=== PATIENT | female | born 1985 | race African-American/Black ===

== ENCOUNTER 2017-04-05 08:40 | Emergency (ER) | payer OTHER ==
[~2017-04-05 08:40] MED LIST: PRENCAP10 PO
[2017-04-05 08:41] VITALS: PULSE 108; RESP 26; O2SAT 94
--- NOTE | 2017-04-05 09:01 | PD ---
HPI Chief Complaint: Respiratory Distress Time Seen by Provider: 08:55 Travel History International Travel<30 days: No Contact w/Intl Traveler<30days: No Traveled to known affect area: No History of Present Illness HPI 32-year-old female history of asthma and bronchitis, presents today with complaints of cough and shortness of breath and wheezing. The patient states it started yesterday. She states she used her son's nebulizer last night however this morning the wheezing and shortness of breath was still bad. She denies any fevers, chills. She denies any chest pain, chest pressure. She does report production in her cough with yellow green tinged sputum. The patient is currently undergoing her menstrual cycle right now. There no other complaints time my examination. Patient reports she stopped smoking 2 weeks ago. The patient has no previous history of pulmonary emboli. She is currently not smoking. She does not have any calf tenderness or swelling. There is no pleuritic chest pain. There are no recent long car or plane rides. There is currently no estrogen use. PFSH Past Medical History Diminished Hearing: No Hypertension: Yes ?: Not : 2 Para: 1 Past Surgical History Section: Yes Gynecologic Surgery: Yes (1 ) Social History Alcohol Use: No Tobacco Use: No Substance Use: No (HX OF MARIJUANA USE) Allergies-Medications (Allergen,Severity, Reaction): Coded Allergies: No Known Allergies (Unverified , 04/08/15) Reported Meds & Prescriptions Reported Meds & Active Scripts Active Reported Multi +Dha (Ferrous Fumarate/Vit C/Folic Acid) + Cap 1 Cap PO DAILY Review of Systems Except as stated in HPI: all other systems reviewed are Neg General / Constitutional: No: Fever, Chills HENT: No: Headaches, Neck Pain Cardiovascular: No: Chest Pain or Discomfort, Palpitations Respiratory: Positive: Cough (green yellow sputum), Shortness of Breath, Wheezing Gastrointestinal: No: Nausea, Vomiting, Abdominal Pain Genitourinary: No: Frequency, Dysuria Musculoskeletal: No: Weakness, Pain Neurologic: No: Weakness, Dizziness, Headache Physical Exam Narrative GENERAL: Well-nourished, well-developed patient, in moderate respiratory discomfort. SKIN: Focused skin assessment warm/dry. HEAD: Normocephalic/atraumatic. EYES: No scleral icterus. No injection or drainage. NECK: Supple, trachea midline. CARDIOVASCULAR: Regular rate and rhythm without murmurs, gallops, or rubs. RESPIRATORY: Decreased breath sounds bilaterally. No Rales or wheezing. GASTROINTESTINAL: Abdomen soft, non-tender, nondistended. MUSCULOSKELETAL: No cyanosis, or edema. NEUROLOGICAL: Awake and alert. Cranial nerves II through XII intact. Motor grossly within normal limits. Five out of 5 muscle strength in all muscle groups. Normal speech. Data Data Last Documented VS Vital Signs Date Time Temp Pulse Resp B/P (MAP) Pulse Ox O2 Delivery O2 Flow Rate FiO2 04/05/17 09:05 100 Aerosol Mask 04/05/17 08:41 108 26 Orders Orders Complete Blood Count With Diff (04/05/17 09:01) Basic Metabolic Panel (Bmp) (04/05/17 09:01) Iv Access Insert/Monitor (04/05/17 09:01) Ecg Monitoring (04/05/17 09:01) Oximetry (04/05/17 09:01) Oxygen Administration (04/05/17 09:01) Chest, Single Ap (04/05/17 09:01) Sodium Chloride 0.9% Flush (Ns Flush) (04/05/17 09:15) Methylprednisolone So Succ Inj (Solumedr (04/05/17 09:15) Albuterol-Ipratropium Neb (Duoneb Neb) (04/05/17 09:15) Albuterol Neb (Albuterol Neb) (04/05/17 09:15) Labs Laboratory Tests Test 04/05/17 09:00 White Blood Count 8.5 TH/MM3 Red Blood Count 4.66 MIL/MM3 Hemoglobin 14.4 GM/DL Hematocrit 42.8 % Mean Corpuscular Volume 91.8 FL Mean Corpuscular Hemoglobin 30.8 PG Mean Corpuscular Hemoglobin Concent 33.5 % Red Cell Distribution Width 13.9 % Platelet Count 316 TH/MM3 Mean Platelet Volume 8.0 FL Neutrophils (%) (Auto) 67.5 % Lymphocytes (%) (Auto) 16.1 % Monocytes (%) (Auto) 10.2 % Eosinophils (%) (Auto) 5.7 % Basophils (%) (Auto) 0.5 % Neutrophils # (Auto) 5.8 TH/MM3 Lymphocytes # (Auto) 1.4 TH/MM3 Monocytes # (Auto) 0.9 TH/MM3 Eosinophils # (Auto) 0.5 TH/MM3 Basophils # (Auto) 0.0 TH/MM3 CBC Comment DIFF FINAL Differential Comment Blood Urea Nitrogen 6 MG/DL Creatinine 0.81 MG/DL Random Glucose 98 MG/DL Calcium Level 9.0 MG/DL Sodium Level 137 MEQ/L Potassium Level 3.6 MEQ/L Chloride Level 105 MEQ/L Carbon Dioxide Level 25.0 MEQ/L Anion Gap 7 MEQ/L Estimat Glomerular Filtration Rate 100 ML/MIN [facility] Medical Decision Making Medical Screen Exam Complete: Yes Emergency Medical Condition: Yes Differential Diagnosis Rhonchi this versus pneumonia versus pulmonary embolus Narrative Course 32-year-old female with history of bronchitis, presents today with complaints of cough and shortness of breath. The patient denies a fevers, chills. Patient has wheezing diffusely bilaterally and decreased respiratory breath sounds at the bases. She's been given 125 mg of Solu-Medrol. She's also been given 3 nebulizer treatments first with Atrovent. She'll be discharged with a prescription for azithromycin Z-Malick, pro-air inhaler, prednisone 40 mg daily 6 days. She'll be instructed to follow up with her primary care physician. Diagnosis Primary Impression: Acute bronchitis Additional Instructions: Return if feeling worse. Med/Other Pt SpecificInfo: Prescription(s) given Scripts Albuterol 8.5 GM Inh (Proair Hfa 8.5 GM Inh) 90 Mcg/Act Aer 1 PUFF INH Q4-6H Y for SHORTNESS OF BREATH, #1 INHALER 0 Refills 108 mcg/actuation Prov: George Wallace MD 04/05/17 Azithromycin (Zithromax Z-Malick) 250 Mg Dspk 250 MG PO DIRECTED for Infection, #1 DSPK 0 Refills 500 MG (2 tabs) day 1, then 1 tab days 2-5. Prov: George Wallace MD 04/05/17 Prednisone (Prednisone) 20 Mg Tab 40 MG PO DAILY for 6 Days, #12 TAB 0 Refills Take 40 mg (2 tablets) daily for 5 days Prov: George Wallace MD 04/05/17 Disposition: 01 DISCHARGE HOME Condition: Stable George Wallace MD Apr 05, 2017 09:01
[2017-04-05] MEDS: RESP: ALBUTEROL 2.5 MG/3 ML NEB (SCH) INH ×2 (09:11→09:12)
[2017-04-05] MEDS ORDERED: SODIUM CHLORIDE 0.9% FLUSH 10 ML FLUSH IVF PRN (09:15)
[2017-04-05] MEDS ORDERED: methylPREDNISolone SOD SUCC 125 MG/2 ML VIAL IV PUSH ONE (09:15)
[2017-04-05] MEDS ORDERED: RESP: ALBUTEROL 2.5 MG/IPRATROPIUM 0.5 MG NEB (SCH) INH ONE (09:15)
[2017-04-05 09:34] LABS: AUTOMATED NEUTROPHIL # 5.8 TH/MM3 (1.8-7.7); BASOPHIL % 0.5 % (0.0-2.0); EOSINOPHIL # 0.5 TH/MM3 (0-0.4); EOSINOPHIL % 5.7 % (0.0-4.0); HEMATOCRIT 42.8 % (35.0-46.0); HEMO FLAGS DIFF FINAL; LYMPH % 16.1 % (9.0-44.0); LYMPHOCYTE # 1.4 TH/MM3 (1.0-4.8); MEAN CELL VOLUME 91.8 FL (80.0-100.0); MEAN CORPUSCULAR HEMOGLOBIN 30.8 PG (27.0-34.0); MEAN CORPUSCULAR HGB CONC 33.5 % (32.0-36.0); MONO % 10.2 % (0.0-8.0); NEUT % 67.5 % (16.0-70.0); PLATELET COUNT 316 TH/MM3 (150-450); RED BLOOD COUNT 4.66 MIL/MM3 (4.00-5.30); RED CELL DISTRIBUTION WIDTH 13.9 % (11.6-17.2); WHITE BLOOD COUNT 8.5 TH/MM3 (4.0-11.0)
--- NOTE | 2017-04-05 09:39 | RADRPT ---
EXAM DATE/TIME: 04/05/2017 09:19 [place] COMPARISON: No previous studies available for comparison. INDICATIONS : Short of breath with cough x2 days. MEDICAL HISTORY : Asthma SURGICAL HISTORY : None. ENCOUNTER: Initial ACUITY: 2 days PAIN SCORE: 0/10 LOCATION: Bilateral chest FINDINGS: A single view of the chest demonstrates the lungs to be symmetrically aerated without evidence of mas s, infiltrate or effusion. The cardiomediastinal contours are unremarkable. Osseous structures are intact. CONCLUSION: No acute disease. Christopher Thomas MD FACR on April 05, 2017 at 9:37 Board Certified Radiologist. This report was verified electronically.
[2017-04-05 09:48] LABS: POTASSIUM 3.6 MEQ/L (3.5-5.1)
[2017-04-05 10:00] VITALS: BP 189/103; PULSE 95; RESP 24; O2SAT 95
[2017-04-05 10:30] VITALS: BP 166/84; PULSE 96; RESP 18; O2SAT 95
[2017-04-05] MEDS ORDERED: PRED20 PO (10:35)
[2017-04-05] MEDS ORDERED: ALBUAER3 INH (10:35)
[2017-04-05] MEDS ORDERED: ZITHTAB PO (10:35)
== END 2017-04-05 11:13 | disposition home or self-care (01) ==
LOC: NEPE 08:40
DX: J20.9 Acute bronchitis, unspecified (principal); I10 Essential (primary) hypertension
CPT/HCPCS: 71010; 80048; 85025; 94640; 94664; 96374; 99285; J2930; J7613

== ENCOUNTER → 2017-10-01 | Outpatient (CLI) | payer OTHER ==
[~2017-10-01] MED LIST changes: +ALBUAER3 INH; +PRED20 PO; +ZITHTAB PO
== END ==
LOC: HPND 08:23
PROVIDERS: ATTEND Obstetrics & Gynecology
DX: O99.212 Obesity complicating pregnancy, second trimester (principal); E66.01 Morbid (severe) obesity due to excess calories; Z68.41 Body mass index [BMI] 40.0-44.9, adult
CPT/HCPCS: 76811

== ENCOUNTER 2018-02-21 08:36 | Inpatient (IN) ==
[2018-02-21] MEDS ORDERED: ceFAZolin 2 GM Premix Inj 2 GM/50 ML PIGGYBACK IV.SIG PRN (08:53)
--- NOTE | 2018-02-21 08:55 | P.HPOB ---
History of Present Illness Primary Care Physician: No Primary Care Physician [facility] History of Present Illness: 33-year-old female, at 39 weeks 1 day, history of previous x1 , presents for scheduled repeat . Patient denies any contractions, leakage of fluid, vaginal bleeding. OB history: Elevated GCT in this , GTT normal Elevated BPs during pregnancynot on medication x1 in 2009 SAB x1 Medical history: Elevated BPs, never on medication per patient Chronic bronchitisuses albuterol twice daily irregularly Surgical history: x1 Meds: vitamins, iron Allergies: None - Inpatient Certification I certify that the inpatient services were ordered in accordance with Medicare regulations governing the order. This includes certification that hospital inpatient services are reasonable and necessary and in the case of services not specified as inpatient-only under 42 CFR 419.22(n), that they are appropriately provided as inpatient services in accordance to with the 2-midnight benchmark under 43 CFR 412.3(e) Estimated Total Length of Stay (Days): 2 Plans for Post Hospital Care: Home Review of Systems All other systems reviewed negative except as stated in HPI [facility] - Medical History Medical History: Medical History (Last Updated 02/11/18 @ 14:41 by Jackie Doran MD) Chronic bronchitis - Tobacco History Second Hand Smoke Exposure: No Smoking Status: Never smoker - Alcohol History How Often Do You Have a Drink Containing Alcohol: Monthly or less - Travel History History of Recent Travel: No Medications and Allergies Active Medications: Active Medications Citric Acid/Sodium Citrate (Sodium Citrate/Citric Acid Liq) 30 ml 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 [facility] Stop: 02/25/18 08:59 Cefazolin Sodium/Dextrose (Ancef 2 Gm Premix Inj) 2 gm in 50 mls @ 100 mls/hr IV.SIG [employer]OR[employer] MARKETING SPECIALIST PRN PRN Reason: surgery Stop: 02/25/18 08:52 Lactated Ringer's (Lr 1000 Ml Inj) 1,000 mls @ 2,000 mls/hr IV.SIG .Q30M ONE Stop: 02/21/18 09:22 Allergies Allergy/AdvReac Type Severity Reaction Status Date / Time No Known Allergies Allergy NONE Uncoded 11/29/17 22:36 Home Medications Medication Instructions Recorded Confirmed Type albuterol sulfate 2 puff INHALATION Q4-6H PRN 11/29/17 11/29/17 History ferrous sulfate [iron] 325 mg PO DAILY 11/29/17 11/29/17 History prenat.vits,martine,[id number]-[id number] 1 tab PO DAILY 11/29/17 11/29/17 History [ Vitamin] Exam Narrative: GENERAL: Well-nourished, well-developed patient. SKIN: Warm and dry. HEAD: Normocephalic and atraumatic. EYES: No scleral icterus. No injection or drainage. ENT: No nasal drainage noted. Mucous membranes pink. Airway patent. NECK: Supple, trachea midline. No JVD. CARDIOVASCULAR: Regular rate and rhythm without murmurs, gallops, or rubs. RESPIRATORY: Breath sounds equal bilaterally. No accessory muscle use. ABDOMEN/GI: Abdomen soft, non-tender, bowel sounds present, no rebound, no guarding Gravid to 40 weeks size Fundal Height: 40 GENITOURINARY: External Genitalia: intact and normal in appearance FHT's: 130 baseline, positive accelerations, category 1 No contractions on monitor EXTREMITIES: No cyanosis or edema. BACK: Nontender without obvious deformity. No CVA tenderness. NEUROLOGICAL: Awake and alert. Motor and sensory grossly within normal limits. Five out of 5 muscle strength in all muscle groups. Normal speech. Results - Labs CBC & Chem 7: 02/21/18 09:00 02/21/18 09:00 Caprini VTE Risk Assessment Caprini VTE Risk Assessment: No/Low Risk (score <= 1) Caprini Risk Assessment Model: Point Value = 1 Point Value = 2 Point Value = 3 Point Value = 5 Age 41-60 Minor surgery BMI > 25 kg/m2 Swollen legs Varicose veins or History of unexplained or recurrent spontaneous Oral contraceptives or hormone replacement Sepsis (< 1 month) Serious lung disease, including pneumonia (< 1 month) Abnormal pulmonary function Acute myocardial infarction Congestive heart failure (< 1 month) History of inflammatory bowel disease Medical patient at bed rest Age 61-74 Arthroscopic surgery Major open surgery (> 45 min) Laparoscopic surgery (> 45 min) Malignancy Confined to bed (> 72 hours) Immobilizing plaster cast Central venous access Age >= 75 History of VTE Family history of VTE Factor V Leiden Prothrombin [id number] Lupus anticoagulant Anticardiolipin antibodies Elevated serum homocysteine Heparin-induced thrombocytopenia Other congenital or acquired thrombophilia Stroke (< 1 month) Elective arthroplasty Hip, pelvis, or leg fracture Acute spinal cord injury (< 1 month) Prophylaxis Regimen: Total Risk Factor Score Risk Level Prophylaxis Regimen 0-1 Low Early ambulation 2 Moderate Order ONE of the following: *Sequential Compression Device (SCD) *Heparin 5000 units SQ BID 3-4 Higher Order ONE of the following medications: *Heparin 5000 units SQ TID *Enoxaparin/Lovenox 40 mg SQ daily (WT < 150 kg, CrCl > 30 mL/min) *Enoxaparin/Lovenox 30 mg SQ daily (WT < 150 kg, CrCl > 10-29 mL/min) *Enoxaparin/Lovenox 30 mg SQ BID (WT < 150 kg, CrCl > 30 mL/min) AND/OR *Sequential Compression Device (SCD) 5 or more Highest Order ONE of the following medications: *Heparin 5000 units SQ TID (Preferred with Epidurals) *Enoxaparin/Lovenox 40 mg SQ daily (WT < 150 kg, CrCl > 30 mL/min) *Enoxaparin/Lovenox 30 mg SQ daily (WT < 150 kg, CrCl > 10-29 mL/min) *Enoxaparin/Lovenox 30 mg SQ BID (WT < 150 kg, CrCl > 30 mL/min) AND *Sequential Compression Device (SCD) Assessment and Plan - Diagnosis (1) 39 weeks gestation of Code(s): Z3A.39 - 39 weeks gestation of Status: Acute Plan: 33-year-old female, at 39 weeks 1 day, history of previous x1 , presents for scheduled repeat . Preoperative orders in Ancef 2g pre-op GBS negative f/u initial labs (2) Elevated blood pressure affecting in third trimester, antepartum Code(s): O16.3 - Unspecified maternal hypertension, third trimester Status: Acute Plan: BP 160/110, 170/100 on admission hx of elevated BPs on last 3 visits per chart review, negative Udips in office STAT Hydralazine 5mg IV, f/u BPs f/u CBC, CMP, UA (3) History of delivery affecting Code(s): O34.219 - Maternal care for unspecified type scar from previous delivery Status: Acute
[2018-02-21] MEDS ORDERED: Citric Acid/Sodium Citrate Liq 30 ML UDC PO SCH (09:00)
[2018-02-21] MEDS ORDERED: hydrALAZINE HCl Inj 20 MG/ML Vial IV.PUSH PRN (09:10)
[2018-02-21 09:15] LABS: Baso % (Auto) 0.3 % (0.0-2.0); Eos # (Auto) 0.3 th/mm3 (0.0-0.4); Eos % (Auto) 2.4 % (0.0-4.0); Hematocrit 38.3 % (35.0-46.0); Lymph % (Auto) 18.6 % (9.0-44.0); Mean Corpuscular HGB Conc 33.9 % (32.0-36.0); Mean Corpuscular Hemoglobin 31.4 pg (27.0-34.0); Mean Corpuscular Volume 92.5 fL (80.0-100.0); Mono # (Auto) 1.4 th/mm3 (0.0-0.9); Neut % (Auto) 65.7 % (16.0-70.0); Platelet Count 230 th/mm3 (150-450); Red Blood Count 4.13 mil/mm3 (4.00-5.30); Red Cell Distribution Width 13.9 % (11.6-17.2); White Blood Count 10.6 th/mm3 (4.0-11.0)
[2018-02-21 09:46] LABS: Albumin 2.8 g/dL (3.4-5.0); Anion Gap 11 meq/L (5-15); Aspartate Aminotransferase 22 U/L (15-37); Blood Urea Nitrogen 6 mg/dL (7-18); Calcium 9.1 mg/dL (8.5-10.1); Carbon Dioxide 20.9 meq/L (21.0-32.0); Chloride 107 meq/L (98-107); Glomerular Filtration Rate Greater Than 89 mL/min (>89); Glucose,Random 98 mg/dL (74-106); Potassium 3.7 meq/L (3.5-5.1); Sodium 139 meq/L (136-145)
[2018-02-21 09:47] LABS: Alanine Aminotransferase 33 U/L (10-53)
[2018-02-21 09:48] LABS: Bacteria,Urine Rare /hpf; Bilirubin,Urine Negative (Negative); Clarity,Urine Hazy (Clear); Color,Urine Yellow (Yellw/Straw); Glucose,Urine (UA) Negative (Negative); Leukocyte Esterase,Urine Negative (Negative); Mucus,Urine Few /lpf (Occasional); Nitrite,Urine Negative (Negative); Specific Gravity,Urine 1.019 (1.002-1.035); Squamous Epithelial Cell,Urine 12 /hpf (0-5)
[2018-02-21 09:49] LABS: Alkaline Phosphatase 107 U/L (45-117); Total Protein 6.9 g/dL (6.4-8.2)
[2018-02-21 09:55] LABS: Amphetamine Screen,Urine Neg (Neg); Barbiturate Screen,Urine Neg (Neg); Cannabinoid Screen,Urine Neg (Neg); Cocaine Screen,Urine Neg (Neg)
[2018-02-21 10:00] LABS: Opiate Screen,Urine Neg (Neg)
[2018-02-21] MEDS ORDERED: Morphine Sulfate PF Inj 5 MG/10 ML Ampul ONE (10:20)
[2018-02-21] MEDS ORDERED: ceFAZolin Inj 3,000 MG in Sodium Chlor 0.9% Inj 100 ML IV.SIG SCH (10:22)
[2018-02-21] MEDS ORDERED: Ketorolac Inj 30 MG/ML (IVP) Vial IV.PUSH ONE (10:24)
[2018-02-21] MEDS ORDERED: Phenylephrine/NS 1000 MCG/10ML Syringe IV.PUSH ONE (10:24)
[2018-02-21] MEDS ORDERED: Simethicone 80 MG Chew Tablet PO PRN (12:02)
[2018-02-21] MEDS ORDERED: Oxytocin 30 Units/500ml Premix 30 UNITS/500 ML BAG IV.SIG ONE (12:30)
[2018-02-21] MEDS ORDERED: Oxytocin 30 Units/500ml Premix 30 UNITS/500 ML BAG ONE (12:38)
[2018-02-21] MEDS ORDERED: Naloxone Inj 0.4 MG/ML Vial IV.PUSH PRN (13:41)
[2018-02-21] MEDS ORDERED: Morphine Inj 4 MG/ML Vial ONE (13:42)
--- NOTE | 2018-02-21 14:14 | P.OP ---
Date of procedure: 02/21/18 Procedure: Repeat lower uterine transverse section and bilateral tubal ligation Anesthesia: spinal Surgeon: Jackie Doran MD Dental Mold Maker: Joseph HEARN PGY 3 Estimated blood loss (mL): 700 Operation and Findings: Patient scheduled for repeat delivery and tubal sterilization. Counseled of alternatives benefits complications including but not limited to risk of permanent injury to the bowel bladder nerve blood vessels ureters any structures in the abdomen or pelvis infection hemorrhage morbidity mortality related surgery under anesthesia related procedures even remote possibility of . Risk of injury risk of reoperation risk risk of anesthesia patient expressed verbal understanding. She was subsequently taken to the OR where she was placed under spinal analgesia without incident please note timeout was performed subsequently prepped and draped in normal sterile fashion. Phenylhistine incision was made through the skin carried down to the underlying layer of fascia. Within the fashion noted to have previous sutures present and fascia was noted to be densely adherent which was lysed with scalpel as well as Metzenbaum scissors. Incision in the midline extended laterally with scalpel and Metzenbaum scissors. The superior aspect of the fascia was grasped with Luis clamps x2 dissected off from the underlying rectus muscle with a scalpel. The inferior aspect of the fascia was grasped with Luis clamps x2 dissected off from the underlying rectus muscle with curved mets. Rectus muscle was blunt entrance of the peritoneum with care to avoid the bladder. Vesicouterine peritoneum was identified bladder blade was placed vesicouterine peritoneum created in a transverse fashion to affect the bladder flap and then subsequently repositioning of the bladder blade. Transverse incision on the uterus extended laterally digitally amniotomy clear fluid. vertex was noted to be engaged first attempt to deliver suboptimal. The rectus abdominis muscle was noted to be quite tense subsequently the rectus abdominis muscle was transected with care to avoid the inferior epigastric vessels. The second attempt to deliver the vertex was without incident nares and mouth were bulb suctioned delivery of the remainder of the body delayed cord clamping once the cord was clamped and cut was handed to waiting team a viable male Apgars 8 9 weight 3105 g delivered without incident. Subsequently the cord blood was collected placenta was manually removed the uterus was externalized cleared of all clot and debris uterine incision was closed with 1 chromic in a running locked fashion followed by second imbricating Lembert suture. In spite of closure in 2 layers noted to be suboptimal in regards to hemostasis at this time deeper sutures were placed- mattress style sutures were placed x2 subsequently hemostasis was noted to be adequate. Attention was then paid to the patient's left tube which was followed out to the fimbriated end Deanna applied a window was created in the mesosalpinx subsequently ligating the tube including the fimbriated end x2 with plain gut good hemostasis was noted and subsequently excising the tube superior to the knot. With good hemostasis noted the same identical procedure was performed to the contralateral side. The posterior aspect of the uterus was assessed and evaluated no lesions no scar tissue noted bilateral adnexa within normal. The uterus was repositioned in the pelvic abdominal cavity after the paracolic gutters were cleared of all clot and debris uterine incision was noted to be hemostatic bilateral tubes were noted to be hemostatic. All surgical sites were noted to be hemostatic. Subsequent identification of the fascia which was grasped with a [place] clamp and then subsequently closed the fascia in a running continuous fashion with PDS suture. Subcutaneous bleeding which was present was readily controlled with Bovie pencil copious irrigation. The skin was subsequently closed with Monocryl on a Luigi needle in its entirety patient taught procedure well sponge lap needle counts correct x2 mother and baby in stable condition.
[2018-02-21] MEDS ORDERED: Oxytocin 30 Units/500ml Premix 30 UNITS/500 ML BAG IV.SIG PRN (17:04)
[2018-02-21] MEDS: ceFAZolin Inj 2,000 MG in Sodium Chlor 0.9% Inj 80 ML IV.SIG SCH (19:59)
[2018-02-22] MEDS: ceFAZolin Inj 2,000 MG in Sodium Chlor 0.9% Inj 80 ML IV.SIG SCH (04:22)
[2018-02-22] MEDS: Ibuprofen 400 MG Tablet PO PRN ×2 (04:37→15:29)
[2018-02-22 05:48] LABS: Baso % (Auto) 0.1 % (0.0-2.0); Eos # (Auto) 0.1 th/mm3 (0.0-0.4); Eos % (Auto) 0.6 % (0.0-4.0); Hematocrit 33.4 % (35.0-46.0); Hemoglobin 11.5 gm/dL (11.6-15.3); Lymph # (Auto) 1.5 th/mm3 (1.0-4.8); Lymph % (Auto) 7.6 % (9.0-44.0); Mean Corpuscular HGB Conc 34.3 % (32.0-36.0); Mean Corpuscular Hemoglobin 31.5 pg (27.0-34.0); Mean Corpuscular Volume 91.8 fL (80.0-100.0); Mono # (Auto) 2.1 th/mm3 (0.0-0.9); Mono % (Auto) 11.1 % (0.0-8.0); Neut # (Auto) 15.5 th/mm3 (1.8-7.7); Neut % (Auto) 80.6 % (16.0-70.0); Platelet Count 210 th/mm3 (150-450); Red Blood Count 3.64 mil/mm3 (4.00-5.30); Red Cell Distribution Width 13.9 % (11.6-17.2); White Blood Count 19.2 th/mm3 (4.0-11.0)
[2018-02-22] MEDS: Senna/Docusate Sodium 8.6/50 MG Tablet PO PRN ×2 (09:12→22:13)
--- NOTE | 2018-02-22 09:43 | P.PNOB ---
Subjective Post op day: 1 Interval history: 33 y/o F, s/p scheduled repeat c/s at 39weeks 1 day, now POD#1. No N/V. Ambulating and voiding without difficulty. Denies any CP/SOB/Dizzyness. No calf tenderness. Not yet passing gas. Denies headache/blurry vision/RUQ pain. Objective Vital Signs/I&O: Vital Signs 02/21/18 09:49 02/21/18 12:05 02/21/18 12:17 Temperature 97.4 F L Pulse Rate 86 82 84 Respiratory Rate 18 18 Blood Pressure 149/100 H 127/68 129/69 02/21/18 12:35 02/21/18 12:50 02/21/18 13:05 Temperature 97.6 F Pulse Rate 75 78 73 Respiratory Rate 16 16 18 Blood Pressure 137/82 145/75 H 167/105 H 02/21/18 13:09 02/21/18 13:40 02/21/18 16:31 Temperature 97.5 F L Pulse Rate 75 82 Respiratory Rate 16 Blood Pressure 162/98 H 148/95 H 158/101 H 02/21/18 16:58 02/21/18 19:35 02/21/18 20:00 Temperature 98.6 F Pulse Rate 86 Respiratory Rate 18 18 Blood Pressure 140/90 145/85 H 02/21/18 21:35 02/21/18 22:23 02/22/18 00:00 Temperature 98.6 F Pulse Rate 86 Respiratory Rate 18 18 18 Blood Pressure 145/85 H 02/22/18 04:23 02/22/18 05:50 02/22/18 08:26 Temperature 98.6 F 98.1 F Pulse Rate 86 85 Respiratory Rate 18 20 Blood Pressure 175/85 H 150/80 H 135/77 Intake & Output 02/21/18 02/22/18 02/22/18 18:59 06:59 18:59 Intake Total 100 / 100 100 / 100 Balance 100 / 100 100 / 100 Weight 120.656 kg Intake: IV 100 / 100 100 / 100 Ofirmev Inj 1,000 mg In 100 ml 100 / 100 @ 0 mls/hr IV.SIG .STK-MED ONE Rx#:[id number] Ancef Inj 2,000 MG In NS Inj 80 100 / 100 ML @ 200 mls/hr IV.SIG Q8H KAYLIN Rx#:[id number] Other: Weight On Admission 120.656 kg Result Diagrams: 02/22/18 05:31 02/21/18 09:00 Objective Remarks: GENERAL: Well-nourished, well-developed patient. CARDIOVASCULAR: Regular rate and rhythm without murmurs, gallops, or rubs. RESPIRATORY: Breath sounds equal bilaterally. No accessory muscle use. ABDOMEN/GI: Abdomen soft, non-tender, bowel sounds present. Incision: Clean, dry and intact. pressure dressing in place, no drainage. Fundus: Firm, non-tender at umbilicus. GENITOURINARY: Light to moderate bleeding. EXTREMITIES: No cyanosis or edema, non-tender, without signs of DVT. 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 [facility] Stop: 02/25/18 08:59 Last Admin: 02/21/18 10:18 Dose: 30 ml Diphenhydramine HCl (Benadryl Inj) 25 mg IV.PUSH Q6H PRN PRN Reason: MILD TO MODERATE ITCHING Stop: 02/22/18 10:30 Diphenhydramine HCl (Benadryl) 50 mg PO Q6H PRN PRN Reason: MILD TO MODERATE ITCHING Stop: 02/22/18 10:30 Last Admin: 02/22/18 04:22 Dose: 50 mg Diphtheria/Pertussis/Tetanus Vacc (Boostrix Vaccine Inj) 0.5 ml IM .ONCE ONE Stop: 02/22/18 16:01 Hydralazine HCl (Apresoline Inj) 5 mg IV.PUSH Q30M PRN PRN Reason: SEE DOSE INSTRUCTIONS Last Admin: 02/21/18 09:21 Dose: 5 mg Cefazolin Sodium/Dextrose (Ancef 2 Gm Premix Inj) 2 gm in 50 mls @ 100 mls/hr IV.SIG [employer] INST[employer]ER AND REPAIRER PRN PRN Reason: surgery Stop: 02/25/18 08:52 Cefazolin Sodium 3,000 mg/ (Sodium Chloride) 130 mls @ 200 mls/hr IV.SIG [employer] INSTALLER AND REPAIRER [facility] Lactated Ringer's (Lr 1000 Ml Inj) 1,000 mls @ 100 mls/hr IV.CONT .Q10H [facility] Stop: 02/22/18 13:03 Last Admin: 02/21/18 17:16 Dose: 100 mls/hr Oxytocin (Pitocin 30 Units/Ns 500 Ml Premix) 30 units in 500 mls @ 100 mls/hr IV.SIG UNSCH PRN PRN Reason: Heavy bleeding Ibuprofen (Motrin) 800 mg PO Q8H PRN PRN Reason: cramping Last Admin: 02/22/18 04:37 Dose: 800 mg Ketorolac Tromethamine (Toradol Inj) 30 mg IM Q6H PRN PRN Reason: SEE LABEL COMMENTS Stop: 02/26/18 12:01 Measles/Mumps/Rubella Vaccine Live (M-M-R Ii Vaccine Inj) 0.5 ml SQ .ONCE ONE Stop: 02/22/18 16:01 Miscellaneous Information ([facility] Nursing Information) 1 each OTHER UNSCH PRN PRN Reason: SEE LABEL COMMENTS Stop: 02/22/18 10:30 Miscellaneous Information ([facility] Nursing Information) 1 each OTHER UNSCH PRN PRN Reason: SEE LABEL COMMENTS Stop: 02/22/18 10:30 Naloxone HCl (Narcan Inj) 0.4 mg IV.PUSH UNSCH PRN PRN Reason: SEE LABEL COMMENTS Stop: 02/22/18 10:30 Nifedipine (Procardia Xl) 30 mg PO Q12H KAYLIN Last Admin: 02/22/18 01:34 Dose: 30 mg Ondansetron HCl (Zofran Inj) 4 mg IV.PUSH Q6H PRN PRN Reason: NAUSEA OR VOMITING Last Admin: 02/21/18 17:14 Dose: 4 mg Oxycodone/Acetaminophen (Percocet 5/325 Mg) 1 tab PO Q4H PRN PRN Reason: PAIN SCALE 3 TO 5 Oxycodone/Acetaminophen (Percocet 5/325 Mg) 2 tab PO Q4H PRN PRN Reason: PAIN SCALE 6 TO 10 Last Admin: 02/22/18 09:11 Dose: 2 tab Senna/Docusate Sodium (Sandi-Colace) 2 tab PO Q12H PRN PRN Reason: CONSTIPATION Last Admin: 02/22/18 09:12 Dose: 2 tab Simethicone (Mylicon Chew) 80 mg PO QID PRN PRN Reason: FLATULENCE Sodium Chloride (Ns Flush) 2 ml IV.FLUSH BID KAYLIN Last Admin: 02/22/18 09:08 Dose: Not Given Sodium Chloride (Ns Flush) 2 ml IV.FLUSH UNSCH PRN PRN Reason: FLUSH AFTER USING IV ACCESS Assessment and Plan - Diagnosis (1) History of delivery affecting Code(s): O34.219 - Maternal care for unspecified type scar from previous delivery Status: Acute Plan: 33 y/o F, s/p scheduled repeat c/s at 39weeks 1 day, now POD#1. - Cont regular post-op care - Advised 6 weeks pelvic rest - CBC WNL - Cont to encourage ambulation (2) Elevated blood pressure affecting in third trimester, antepartum Code(s): O16.3 - Unspecified maternal hypertension, third trimester Status: Acute Plan: BP range 150s/80-90 overnight, with 1 outlier BP. Elevated outlier repeated with correct cuff and within range. BP 160/110, 170/100 on admission pre-op hx of elevated BPs on last 3 visits per chart review, negative Udips in office CMP, UA WNL s/p STAT Hydralazine 5mg IV pre-op, BPs rapidly lowered Started Procardia 30mg PO BID Cont to f/u BPs
[2018-02-22] MEDS ORDERED: Diphtheria/Tetanus/Pertussis Vaccine Inj 0.5 ML Syringe IM ONE (16:00)
[2018-02-22] MEDS ORDERED: Measles/Mumps/Rubella Vaccine Inj 0.5 ML Vial SQ ONE (16:00)
[2018-02-23] MEDS: Ibuprofen 400 MG Tablet PO PRN ×2 (02:37→14:51)
--- NOTE | 2018-02-23 08:37 | P.PNOB ---
Subjective Post op day: 2 Interval history: Postoperative day #2 AFVSS with mild hypertension overnight. Incision not draining. Decreased lochia. Denies dysuria. No breast tenderness. Appetite good. No nausea or vomiting. Positive flatus. Ambulating well. Denies calf pain or shortness of breath. Otherwise, she is doing well this morning and has no other complaints. Objective Vital Signs/I&O: Vital Signs 02/22/18 12:00 02/22/18 12:15 02/22/18 13:10 Temperature 98.1 F 97.6 F Pulse Rate 85 Respiratory Rate 20 Blood Pressure 146/91 H 146/91 H 02/22/18 15:50 02/22/18 16:14 02/22/18 20:00 Temperature 98.0 F 98.3 F Pulse Rate 96 H 87 Respiratory Rate 21 18 Blood Pressure 142/86 H 146/90 H 02/23/18 00:00 02/23/18 04:00 02/23/18 08:00 Temperature 98.0 F 98.7 F 97.7 F Pulse Rate 62 64 105 H Respiratory Rate 18 18 Blood Pressure 138/76 130/76 142/92 H Intake & Output 02/22/18 02/23/18 02/23/18 18:59 06:59 18:59 Intake Total 200 / 200 Balance 200 / 200 Intake: IV 200 / 200 LR 1000 mL Inj 1,000 ML @ 100 200 / 200 mls/hr IV.CONT .Q10H [facility] Rx#: [id number] Result Diagrams: 02/22/18 05:31 02/21/18 09:00 Objective Remarks: GENERAL: Well-nourished, well-developed patient. CARDIOVASCULAR: Regular rate and rhythm without murmurs, gallops, or rubs. RESPIRATORY: Breath sounds equal bilaterally. No accessory muscle use. ABDOMEN/GI: Abdomen soft, non-tender, bowel sounds present. Incision: Clean, dry and intact. Fundus: Firm, non-tender at umbilicus. GENITOURINARY: Light to moderate bleeding. EXTREMITIES: No cyanosis or edema, non-tender, without signs of DVT. Medications and IVs: Active Medications Citric Acid/Sodium Citrate (Sodium Citrate/Citric Acid Liq) 30 ml PO PATIENT SERVICE COORDINATOR [facility] Stop: 02/25/18 08:59 Last Admin: 02/21/18 10:18 Dose: 30 ml Hydralazine HCl (Apresoline Inj) 5 mg IV.PUSH Q30M PRN PRN Reason: SEE DOSE INSTRUCTIONS Last Admin: 02/21/18 09:21 Dose: 5 mg Cefazolin Sodium/Dextrose (Ancef 2 Gm Premix Inj) 2 gm in 50 mls @ 100 mls/hr IV.SIG PATIENT SERVICE COORDINATOR PRN PRN Reason: surgery Stop: 02/25/18 08:52 Cefazolin Sodium 3,000 mg/ (Sodium Chloride) 130 mls @ 200 mls/hr IV.SIG PATIENT SERVICE COORDINATOR KAYLIN Oxytocin (Pitocin 30 Units/Ns 500 Ml Premix) 30 units in 500 mls @ 100 mls/hr IV.SIG UNSCH PRN PRN Reason: Heavy bleeding Ibuprofen (Motrin) 800 mg PO Q8H PRN PRN Reason: cramping Last Admin: 02/23/18 02:37 Dose: 800 mg Ketorolac Tromethamine (Toradol Inj) 30 mg IM Q6H PRN PRN Reason: SEE LABEL COMMENTS Stop: 02/26/18 12:01 Nifedipine (Procardia Xl) 30 mg PO Q12H [facility] Last Admin: 02/23/18 02:37 Dose: 30 mg Ondansetron HCl (Zofran Inj) 4 mg IV.PUSH Q6H PRN PRN Reason: NAUSEA OR VOMITING Last Admin: 02/21/18 17:14 Dose: 4 mg Oxycodone/Acetaminophen (Percocet 5/325 Mg) 1 tab PO Q4H PRN PRN Reason: PAIN SCALE 3 TO 5 Oxycodone/Acetaminophen (Percocet 5/325 Mg) 2 tab PO Q4H PRN PRN Reason: PAIN SCALE 6 TO 10 Last Admin: 02/23/18 07:26 Dose: 2 tab Senna/Docusate Sodium (Sandi-Colace) 2 tab PO Q12H PRN PRN Reason: CONSTIPATION Last Admin: 02/22/18 22:13 Dose: 2 tab Simethicone (Mylicon Chew) 80 mg PO QID PRN PRN Reason: FLATULENCE Sodium Chloride (Ns Flush) 2 ml IV.FLUSH BID KAYLIN Last Admin: 02/22/18 22:14 Dose: 2 ml Sodium Chloride (Ns Flush) 2 ml IV.FLUSH UNSCH PRN PRN Reason: FLUSH AFTER USING IV ACCESS Assessment and Plan - Diagnosis (1) History of delivery affecting Code(s): O34.219 - Maternal care for unspecified type scar from previous delivery Status: Acute (2) Elevated blood pressure affecting in third trimester, antepartum Code(s): O16.3 - Unspecified maternal hypertension, third trimester Status: Acute Plan: BP low hypertensive, 140s systolic. Elevated outlier repeated with correct cuff and within range. BP 160/110, 170/100 on admission pre-op hx of elevated BPs on last 3 visits per chart review, negative Udips in office CMP, UA WNL s/p STAT Hydralazine 5mg IV pre-op, BPs rapidly lowered On Procardia 30mg PO BID, continue Cont to f/u BPs - Plan 33y/o female who is POD#2 s/p CXN. -Continue routine care. -Percocet and Motrin PRN pain. -Encouraged OOB. Advised pelvic rest for 6 wks. Will need a f/u appt. in 1 wk for incision check. -D/c likely today or tomorrow wdw Dr. Craft
[2018-02-23] MEDS ORDERED: Bisacodyl 10 MG Supp RECTAL ONE (09:00)
== END 2018-02-23 15:03 | disposition home or self-care (01) ==
LOC: H2E 08:36 → H1EA 13:25
PROVIDERS: ADMIT Obstetrics & Gynecology; ATTEND Obstetrics & Gynecology